=== PATIENT | female | born 1960 | race African-American/Black ===

== ENCOUNTER 2019-04-03 20:34 | Inpatient (IN) | payer OTHER ==
[~2019-04-03] VITALS: Ht 172.7 cm; Wt 68.0 kg
[2019-04-03 21:52] LABS: BASOPHILS 0.1 % (0-2); EOSINOPHILS 0 % (0-7); HEMATOCRIT 36.1 % (36.0-48.0); HEMOGLOBIN 12.3 g/dL (12-16); IMMATURE GRANULOCYTES 0.6 % (0-5); LYMPHOCYTES 4.6 % (15-50); MCH 26.9 pg (26.0-34.0); MCHC 34.1 g/dL (31.0-37.0); MCV 78.8 fL (80.0-100.0); MEAN PLATELET VOLUME 11.9 fL (7.4-10.4); MONOCYTES 6.5 % (2-11); NEUTROPHILS 88.2 % (40-80); PLATELET COUNT 163 10x3/uL (130-400); RBC 4.58 10x6/uL (4.00-5.40); RDW 13.9 % (11.5-14.5); WBC 18.5 10x3/uL (4.8-10.8)
[2019-04-03 21:56] LABS: APTT 31.7 SECONDS (22.8-39.4); INR 1.19 (0.85-1.17); PROTIME 14.6 SECONDS (11.6-15.0)
[2019-04-03 21:58] LABS: APPEARANCE HAZY (CLEAR); BACTERIA MANY /hpf (NONE SEEN); BILIRUBIN NEGATIVE (NEGATIVE); COLOR YELLOW (YELLOW); EPITHELIAL CELLS OCC /hpf (0-5); GLUCOSE NEGATIVE (NEGATIVE); KETONE MODERATE mg/dL (NEGATIVE); NITRITE POSITIVE (NEGATIVE); PROTEIN 1+ mg/dL (NEGATIVE); RED CELLS - URINE 0-5 /hpf (0-5); UROBILINOGEN NORMAL (NORMAL); WHITE CELLS - URINE 0-5 /hpf (0-5)
[2019-04-03 22:05] LABS: ALBUMIN 2.8 g/dL (3.4-5.0); ALKALINE PHOSPHATASE 196 U/L (46-116); ALT (SGPT) 198 U/L (10-68); CALC OSMOLALITY 257 mosm/kg (275-300); CALCIUM 8.8 mg/dL (8.5-10.1); CARBON DIOXIDE 26.1 mmol/L (21.0-32.0); CHLORIDE - SERUM 90 mmol/L (98-107); CREATININE - SERUM 1.3 mg/dL (0.6-1.3); GLUCOSE 96 mg/dL (74-106); POTASSIUM - SERUM 3.6 mmol/L (3.5-5.1); PROTEIN - SERUM 8.4 g/dL (6.4-8.2); SODIUM 128 mmol/L (136-145); UREA NITROGEN 14 mg/dL (7-18); eGFR NON AFRICAN AMERICAN 44 mL/min (90-120)
[2019-04-03 22:17] LABS: CKMB 11.8 U/L (0.0-3.6)
[2019-04-03 22:24] LABS: CREATINE KINASE 10130 UL (21-215)
--- NOTE | 2019-04-03 22:37 | NUR ---
PT TO RADIOLOGY.
--- NOTE | 2019-04-03 23:02 | NUR ---
PT RETURNED FROM RADIOLOGY.
--- NOTE | 2019-04-03 23:32 | NUR ---
PT AMBULATED TO RESTROOM INDEPENDENTLY.
--- NOTE | 2019-04-04 00:08 | NUR ---
PT AMBULATED TO RESTROOM INDEPENDENTLY.
--- NOTE | 2019-04-04 00:40 | NUR ---
RECEIVED PT FROM ER VIA STRETCHER. LETHARGIC. ORIENTED X4. SLOW TO ANSWER QUESTIONS. RESP IRREG, SOB NOTED. O2 @ 2L/NC. NONPROD COUGH NOTED. V/S STABLE. MEDICATED FOR ELEVATED TEMP IN ER. NS @ 100 ML/HR INFUSING IN RT FOREARM WITHOUT DIFF. DENIES PAIN. GEN WEAKNESS NOTED. APPEARS ILL. INSTRUCTED ON NPO AFTER MIDNIGHT. SHE VERBALIZED UNDERSTANDING. SHANELLE ALARM IN USE FOR PT SAFETY. SR ELEVATED X2. CL IN REACH.
[2019-04-04 01:49] VITALS: BP 102/63; BMI 22.8
--- NOTE | 2019-04-04 02:35 | NUR ---
ASSISTED UP TO BSC TO VOID. BRIEF WAS WET. VERY WEAK. ASSISTED BACK TO BED. SHANELLE ALARM ON. CL IN REACH.
[2019-04-04 05:55] VITALS: BP 119/74
--- NOTE | 2019-04-04 07:57 | NUR ---
PT SEEN AND ASSESSED. NO COMPLAINTS AT PRESENT. WANTS TO EAT BUT KNOWS SHE HAS TO WAIT ON US REPORT. LUNGS DIMINISHED BILAT BUT NO SOB NOTED. FALL PRECAUTIONS IN PLACE. CALL LIGHT IN REACH
[2019-04-04 09:41] VITALS: BP 125/78
[2019-04-04 09:53] LABS: BASOPHILS 0.1 % (0-2); EOSINOPHILS 0 % (0-7); HEMATOCRIT 34.1 % (36.0-48.0); HEMOGLOBIN 11.9 g/dL (12-16); IMMATURE GRANULOCYTES 0.9 % (0-5); LYMPHOCYTES 2.6 % (15-50); MCH 27.5 pg (26.0-34.0); MCHC 34.9 g/dL (31.0-37.0); MCV 78.8 fL (80.0-100.0); MONOCYTES 5.1 % (2-11); NEUTROPHILS 91.3 % (40-80); PLATELET COUNT 159 10x3/uL (130-400); RBC 4.33 10x6/uL (4.00-5.40); RDW 14.3 % (11.5-14.5); WBC 19.3 10x3/uL (4.8-10.8)
[2019-04-04 10:51] LABS: ALBUMIN 2.1 g/dL (3.4-5.0); ANION GAP 12.3 mmol/L (8-16); BILIRUBIN - TOTAL 1.29 mg/dL (0.2-1.3); CALCIUM 8.4 mg/dL (8.5-10.1); CARBON DIOXIDE 27.6 mmol/L (21.0-32.0); CREATININE - SERUM 1.2 mg/dL (0.6-1.3); POTASSIUM - SERUM 3.9 mmol/L (3.5-5.1); PROTEIN - SERUM 7.1 g/dL (6.4-8.2)
--- NOTE | 2019-04-04 11:43 | NUR ---
PT WANTED TO AMBULATE IN HALLWAY WITH DAUGHTER. NO OXYGEN AND SAT REMAINED 94-95 WITH HR 103-106. TOLERATED WELL. BACK IN CHAIR AT BEDSIDE WITH OXYGEN
[2019-04-04 13:30] VITALS: Ht 172.7 cm; Wt 68.0 kg
[2019-04-04 13:51] VITALS: BP 126/70
--- NOTE | 2019-04-04 15:43 | NUR ---
PT BACK TO BED. HAS BEEN UP SINCE MID MORNING. ROOM AIR SAT WHEN EYES CLOSED 89-90. PLACED ON 2LNC AND SATS 94-95%. FALL MAT REACTIVATED WHILE IN BED. SCDS ON BILAT. CALL LIGHT IN REACH
[2019-04-04 17:46] VITALS: BP 117/61
--- NOTE | 2019-04-04 19:25 | NUR ---
SITTING UP IN CHAIR EATING VEGETABLE TRAY. FAMILY AT BEDSIDE. RESP NONLABORED. O2 @ 2L/NC. NONPROD COUGH NOTED. DENIES PAIN. NS @ 100 ML/HR INFUSING IN RT FOREARM WITHOUT DIFF. GEN WEAKNESS NOTED. AMB WITH ASSIST X1. NO DISTRESS. CL IN REACH.
[2019-04-04 21:13] VITALS: BP 123/74
--- NOTE | 2019-04-04 22:30 | NUR ---
C/O PAIN AT IV SITE. IV CATH REMOVED FROM RT FOREARM. NO SWELLING NOTED. IV RESTARTED IN RT FOREARM.
[2019-04-05 00:29] VITALS: BP 134/80
--- NOTE | 2019-04-05 05:00 | NUR ---
HAS RESTED WELL TONIGHT. LYING IN BED WITH EYES CLOSED. RESP EVEN AND NONLABORED. NO DISTRESS. CL IN REACH. SHANELLE ALARM ON .
[2019-04-05 05:28] VITALS: BP 120/69
[2019-04-05 07:18] LABS: HEMATOCRIT 31.6 % (36.0-48.0); HEMOGLOBIN 10.7 g/dL (12-16); MCH 26.3 pg (26.0-34.0); MCHC 33.9 g/dL (31.0-37.0); MCV 77.6 fL (80.0-100.0); PLATELET COUNT 186 10x3/uL (130-400); RBC 4.07 10x6/uL (4.00-5.40); RDW 13.8 % (11.5-14.5); WBC 23.4 10x3/uL (4.8-10.8)
[2019-04-05 07:25] LABS: ALBUMIN 1.9 g/dL (3.4-5.0); ANION GAP 14.9 mmol/L (8-16); BILIRUBIN - TOTAL 0.6 mg/dL (0.2-1.3); CALCIUM 8.2 mg/dL (8.5-10.1); CARBON DIOXIDE 23.8 mmol/L (21.0-32.0); CREATININE - SERUM 0.9 mg/dL (0.6-1.3); POTASSIUM - SERUM 3.7 mmol/L (3.5-5.1); PROTEIN - SERUM 6.8 g/dL (6.4-8.2)
--- NOTE | 2019-04-05 08:24 | NUR ---
PT REFUSED TO TAKE LOVENOX AND SOLU-MEDROL ON THIS AM. PT WAS EDUCATED BY THIS NURSE ON THE IMPORTANTANCE OF TAKIN MEDIATION BUT STILL REFUSED.
[2019-04-05 09:27] LABS: LYMPHOCYTES 14 % (15-50); MONOCYTES 13 % (2-11); NEUTROPHILS 67 % (40-80); PLATELET ESTIMATE NORMAL
[2019-04-05 09:28] LABS: ANISOCYTOSIS OCC; ROULEAUX OCC
[2019-04-05 10:43] VITALS: BP 123/68
[2019-04-05 14:27] VITALS: BP 133/80
--- NOTE | 2019-04-05 15:28 | MORECARE ---
CASE MANAGEMENT DISCHARGE SUMMARY PATIENT: MADHAV MORENO UNIT: [id number] ADM DATE: 04/03/19 AGE: 58 : 56 SEX: F ROOM/BED: D.2202 AUTHOR: JC,DOC PHYSICIAN: REFERRING PHYSICIAN: WANDA CELESTE MD DATE OF SERVICE: 04/05/19 Discharge Plan Patient Name: MADHAV MORENO Facility: [facility]:[place] : 1960 Planned Disposition: Home or Self Care Anticipated Discharge Date: Discharge Date: Expected LOS: Initial Reviewer: [email or web address] Initial Review Date: 04/04/2019 Generated: 04/05/19 4:28 pm Comments DCP- Discharge Planning Updated by [email or web address]: Yadi Dangelo on 04/05/19 2:[address] Patient Name: MADHAV MORENO Admission Status: ER Accout number: [id number] Admission Date: 04-03-2019 : 1960 Admission Diagnosis: Attending: WANDA CELESTE Current LOS: 2 Anticipated DC Date: Planned Disposition: Home or Self Care Primary Insurance: [employer] P[employer] Discharge Planning Comments: CM met with patient to complete initial dc planning assessment. CM educated patient on the CM role and verbal consent given by patient to complete assessment. Patient lives at home where he is independent with her care. At discharge patient plans to return home and feels this is a safe discharge. 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 CM discussed availability of home health, rehab services, and medical equipment. Patient denied known discharge needs at this time. CM will continue to follow and will assist as needed with dc plans/needs. Rn Assessment: Yadi Dangelo DCPIA - Discharge Planning Initial Assessment Updated by [email or web address]: Yadi Dangelo on 04/05/19 3:21 pm * Is the patient Alert and Oriented? Yes * How many steps to enter\exit or inside your home? * PCP BOOKER * Pharmacy [facility] [address] * Preadmission Environment Home Alone * ADLs Independent * Equipment None * List name and contact numbers for known caregivers / representatives who currently or will assist patient after discharge: ABDOUL COLLINS [phone] * Verbal permission to speak to the caregivers and representatives has been obtained from the patient. N/A * Community resources currently utilized None * Additional services required to return to the preadmission environment? No * Can the patient safely return to the preadmission environment? Yes * Has this patient been hospitalized within the prior 30 days at any hospital? No Patient Name: MADHAV MORENO Page [id number] at 1528 All edits/amendments must be made on the electronic document DICTATION DATE: 04/05/191527 DIGGING MACHINE OPERATOR: TESS 04/05/191527 RPT#: [id number] DC DATE: STATUS: ADM IN [facility] [address] [place] [address] END OF REPORT
[2019-04-05 15:48] VITALS: BP 116/65
--- NOTE | 2019-04-05 16:37 | NUR ---
I have reviewed this patient and I concur with the Shift Assessment completed by the Licensed Practical Nurse today this shift.
--- NOTE | 2019-04-05 19:30 | NUR ---
LYING IN BED. ALERT AND ORIENTED X4. SLOW TO RESPOND TO QUESTIONS. GEN WEAKNESS NOTED. FAMILY AT BEDSIDE. RESP NONLABORED. O2 @ 2L/NC. SCDS IN USE. ABD DISTENDED. BS HYPERACTIVE X4 QUADS. NONPROD COUGH NOTED. NS @ 100 ML/HR INFUSING IN RT FOREARM WITHOUT DIFF. SHANELLE ALARM IN USE. NO DISTRESS. SR ELEVATED X2. CL IN REACH.
[2019-04-05 20:38] VITALS: BP 117/64
[2019-04-06] VITALS: BP 114/67
--- NOTE | 2019-04-06 03:29 | NUR ---
LYING IN BED. NO DISTRESS. RESP NONLABORED. O2 @ 2L/NC. V/S STABLE. SHANELLE ALARM IN USE. CL IN REACH.
[2019-04-06 04:00] VITALS: BP 138/77
--- NOTE | 2019-04-06 04:31 | NUR ---
ASSISTED UP TO BSC TO VOID. NO DISTRESS. SHANELLE ALARM ON. CL IN REACH.
[2019-04-06 05:42] LABS: BASOPHILS 0.1 % (0-2); EOSINOPHILS 0 % (0-7); HEMATOCRIT 32.9 % (36.0-48.0); HEMOGLOBIN 11.3 g/dL (12-16); IMMATURE GRANULOCYTES 3.8 % (0-5); LYMPHOCYTES 2.6 % (15-50); MCH 26.6 pg (26.0-34.0); MCHC 34.3 g/dL (31.0-37.0); MCV 77.4 fL (80.0-100.0); MEAN PLATELET VOLUME 12.4 fL (7.4-10.4); NEUTROPHILS 89.5 % (40-80); PLATELET COUNT 199 10x3/uL (130-400); RBC 4.25 10x6/uL (4.00-5.40); RDW 13.8 % (11.5-14.5); WBC 22.5 10x3/uL (4.8-10.8)
[2019-04-06 07:22] LABS: CALC OSMOLALITY 284 mosm/kg (275-300); CALCIUM 8.3 mg/dL (8.5-10.1); CARBON DIOXIDE 25.4 mmol/L (21.0-32.0); CHLORIDE - SERUM 108 mmol/L (98-107); CREATININE - SERUM 0.8 mg/dL (0.6-1.3); GLUCOSE 129 mg/dL (74-106); POTASSIUM - SERUM 3.9 mmol/L (3.5-5.1); SODIUM 141 mmol/L (136-145); UREA NITROGEN 18 mg/dL (7-18); eGFR NON AFRICAN AMERICAN 77 mL/min (90-120)
[2019-04-06 08:46] VITALS: BP 148/88
--- NOTE | 2019-04-06 09:42 | NUR ---
pt alert x 4. breath sounds clear bilat, shallow and short, 3l o2 per nc. iv to right wrist, patent, dressing cdi. pt reporting no pain at this time. bed low, call light in reach. no other needs at this time.
[2019-04-06 12:42] VITALS: BP 130/79
[2019-04-06 18:26] VITALS: BP 141/89
[2019-04-06 20:14] VITALS: BP 132/71
--- NOTE | 2019-04-06 20:30 | NUR ---
PT SITTING UP IN BEDSIDE CHAIR WITHOUT DISTRESS, ALERT AND ORIENTED. DENIES PAIN. O2 4L/NC. IV RIGHT WRIST INFUSING NS @ 100. SHANELLE ON. PT ASSISTED TO BEDSIDE COMMODE. ASSISTED PT WITH TAKING SHOWER. TOLERATED WELL. DENIES OTHER NEEDS. CL IN REACH, WILL CTM
[2019-04-07 02:19] VITALS: BP 134/79
[2019-04-07 06:01] VITALS: BP 130/76
[2019-04-07 06:35] LABS: ANION GAP 11.8 mmol/L (8-16); CALCIUM 8.6 mg/dL (8.5-10.1); CARBON DIOXIDE 26.3 mmol/L (21.0-32.0); CREATININE - SERUM 0.9 mg/dL (0.6-1.3)
[2019-04-07 06:37] LABS: POTASSIUM - SERUM 3.1 mmol/L (3.5-5.1)
[2019-04-07 07:14] LABS: HEMATOCRIT 31.5 % (36.0-48.0); HEMOGLOBIN 10.8 g/dL (12-16); MCH 26.6 pg (26.0-34.0); MCHC 34.3 g/dL (31.0-37.0); MCV 77.6 fL (80.0-100.0); MEAN PLATELET VOLUME 11.6 fL (7.4-10.4); PLATELET COUNT 303 10x3/uL (130-400); RBC 4.06 10x6/uL (4.00-5.40); RDW 13.9 % (11.5-14.5)
[2019-04-07 08:43] LABS: LYMPHOCYTES 4 % (15-50); MONOCYTES 3 % (2-11); NEUTROPHILS 69 % (40-80); PLATELET ESTIMATE NORMAL; PLATELET MORPHOLOGY GIANT PLTS PRESENT
[2019-04-07 08:44] LABS: HYPOCHROMASIA 1+; ROULEAUX 2+
[2019-04-07 09:50] VITALS: BP 132/70
--- NOTE | 2019-04-07 11:56 | NUR ---
PT ALERT X 4. BREATH SOUNDS DIMINISHED TO LOWER LOBES, 4L O2 PER NC. IV TO RIGHT WRIST, PATENT, DRESSING CDI. SCD'S ON. PT REPORTING NO PAIN AT THIS TIME. BED LOW CALL LIGHT IN REACH. NO OTHER NEEDS AT THIS TIME.
[2019-04-07 12:59] VITALS: BP 137/74
[2019-04-07 18:47] VITALS: BP 136/81
[2019-04-07 20:00] VITALS: BP 141/80
[2019-04-08 04:00] VITALS: BP 126/72
[2019-04-08 06:35] LABS: CREATINE KINASE 372 UL (21-215); PRO BNP 515 pg/mL (0-125)
[2019-04-08 07:08] LABS: CKMB 2.1 U/L (0.0-3.6)
[2019-04-08 08:07] VITALS: BP 140/81
--- NOTE | 2019-04-08 08:39 | NUR ---
PT ALERT X 4. BREATH SOUNDS DIMINISHED TO LOWER LOBES, 5L O2 PER NC. IV TO LEFT HAND, PATENT, DRESSING CDI. PT REPORTING NO PAIN AT THIS TIME. BED LOW, CALL LIGHT IN REACH. NO OTHER NEEDS AT THIS TIME.
--- NOTE | 2019-04-08 10:47 | NUR ---
NUTRITION F/U PT TOLERATING VEGAN DIET. ~25% INTAKE BREAKFAST TODAY. DID HAVE EXTRA JUICE. WILL CONTINUE TO PROVIDE DIET, HONOR FOOD PREFERENCES. RD FOLLOWING
[2019-04-08 11:38] LABS: BASOPHILS 0.3 % (0-2); EOSINOPHILS 1.9 % (0-7); HEMATOCRIT 29.8 % (36.0-48.0); IMMATURE GRANULOCYTES 11.6 % (0-5); MCH 26.7 pg (26.0-34.0); MCHC 33.6 g/dL (31.0-37.0); MCV 79.7 fL (80.0-100.0); MEAN PLATELET VOLUME 11.7 fL (7.4-10.4); NEUTROPHILS 71.2 % (40-80); PLATELET COUNT 323 10x3/uL (130-400); RBC 3.74 10x6/uL (4.00-5.40); RDW 14.2 % (11.5-14.5); WBC 20.8 10x3/uL (4.8-10.8)
[2019-04-08 11:42] LABS: ALBUMIN 1.8 g/dL (3.4-5.0); ALKALINE PHOSPHATASE 128 U/L (46-116); ALT (SGPT) 131 U/L (10-68); BILIRUBIN - TOTAL 0.61 mg/dL (0.2-1.3); CALC OSMOLALITY 286 mosm/kg (275-300); CALCIUM 8.2 mg/dL (8.5-10.1); CHLORIDE - SERUM 107 mmol/L (98-107); CREATININE - SERUM 0.8 mg/dL (0.6-1.3); GLUCOSE 76 mg/dL (74-106); MAGNESIUM - SERUM 1.7 mg/dL (1.8-2.4); PHOSPHOROUS 2.1 mg/dL (2.5-4.9); POTASSIUM - SERUM 3.1 mmol/L (3.5-5.1); PROTEIN - SERUM 6.1 g/dL (6.4-8.2); SODIUM 145 mmol/L (136-145); eGFR NON AFRICAN AMERICAN 77 mL/min (90-120)
[2019-04-08 11:45] LABS: UREA NITROGEN 10 mg/dL (7-18)
[2019-04-08 13:21] VITALS: BP 133/81
[2019-04-08 14:30] LABS: PATH REVIEW PERIPHERAL SMEAR REVIEWED
[2019-04-08 16:58] VITALS: BP 133/78
--- NOTE | 2019-04-08 19:40 | NUR ---
PT LYING IN BED RESTING, WITHOUT DISTRESS. O2 5L/NC. IV LEFT HAND INFUSING NS @ 100. SCDS IN PLACE. DENIES PAIN OR NEEDS. CL IN REACH, WILL CTM
[2019-04-08 20:00] VITALS: BP 123/73
[2019-04-09] VITALS: BP 130/61
[2019-04-09 04:00] VITALS: BP 140/70
[2019-04-09 08:46] VITALS: BP 148/78
--- NOTE | 2019-04-09 09:11 | NUR ---
PT ALERT X 4. BREATH SOUNDS DIMINISHED TO LOWER LOBES, 5L O2 PER NC. IV TO LEFT HAND, PATENT, DRESSING CDI. PT REPORTING NO PAIN AT THIS TIME. BED LOW. CALL LIGHT IN REACH. NO OTHER NEEDS AT THIS TIME.
[2019-04-09 09:52] LABS: HEMOGLOBIN 10.5 g/dL (12-16); MCH 27.1 pg (26.0-34.0); MCHC 33.9 g/dL (31.0-37.0); MCV 79.9 fL (80.0-100.0); MEAN PLATELET VOLUME 11.4 fL (7.4-10.4); PLATELET COUNT 386 10x3/uL (130-400); RBC 3.88 10x6/uL (4.00-5.40); RDW 14.5 % (11.5-14.5); WBC 16.5 10x3/uL (4.8-10.8)
[2019-04-09 10:36] LABS: ANION GAP 11.7 mmol/L (8-16); CALCIUM 8.4 mg/dL (8.5-10.1); CARBON DIOXIDE 30.1 mmol/L (21.0-32.0); CREATININE - SERUM 0.9 mg/dL (0.6-1.3); MAGNESIUM - SERUM 1.6 mg/dL (1.8-2.4)
[2019-04-09 10:38] LABS: PHOSPHOROUS 2.7 mg/dL (2.5-4.9)
[2019-04-09 10:39] LABS: POTASSIUM - SERUM 2.8 mmol/L (3.5-5.1)
[2019-04-09 11:20] LABS: EOSINOPHILS 3 % (0-7); LYMPHOCYTES 9 % (15-50); MONOCYTES 6 % (2-11); NEUTROPHILS 69 % (40-80)
[2019-04-09 11:21] LABS: PLATELET ESTIMATE NORMAL
[2019-04-09 13:23] VITALS: BP 148/85
[2019-04-09 16:55] VITALS: BP 150/81
[2019-04-09 20:00] VITALS: BP 132/76
--- NOTE | 2019-04-09 20:11 | NUR ---
REC'D IN ROOM STANDING AT SINK BRUSHING TEETH.DENIES ANY COMPLAINTS AT PRESENT TIME.WILL CONTINUE TO MONITOR FOR ANY CHGES. AND FOLLOW CURRENT PLAN OF CARE.REQUESTING SHOWER EXPLAINED WILL LET PUBLIC HEALTH PHYSICIAN KNOW BUT WILL BE AFTER VS. VOICES UNDERSTANDING
--- NOTE | 2019-04-10 03:29 | NUR ---
I have reviewed this patient and I concur with the Shift Assessment completed by the Licensed Practical Nurse today this shift.
[2019-04-10 04:00] VITALS: BP 132/65
[2019-04-10 08:43] VITALS: BP 141/78
[2019-04-10 08:55] LABS: BASOPHILS 0.3 % (0-2); EOSINOPHILS 2.2 % (0-7); HEMATOCRIT 29.7 % (36.0-48.0); HEMOGLOBIN 9.9 g/dL (12-16); IMMATURE GRANULOCYTES 10.9 % (0-5); LYMPHOCYTES 11.3 % (15-50); MCH 26.4 pg (26.0-34.0); MCHC 33.3 g/dL (31.0-37.0); MCV 79.2 fL (80.0-100.0); MONOCYTES 9.4 % (2-11); NEUTROPHILS 65.9 % (40-80); PLATELET COUNT 413 10x3/uL (130-400); RBC 3.75 10x6/uL (4.00-5.40); RDW 14.5 % (11.5-14.5)
[2019-04-10 09:04] LABS: WBC 10.8 10x3/uL (4.8-10.8)
[2019-04-10 09:06] LABS: ALKALINE PHOSPHATASE 110 U/L (46-116); ALT (SGPT) 108 U/L (10-68); BILIRUBIN - TOTAL 0.51 mg/dL (0.2-1.3); CALCIUM 8.1 mg/dL (8.5-10.1); CARBON DIOXIDE 33.3 mmol/L (21.0-32.0); CHLORIDE - SERUM 107 mmol/L (98-107); CREATININE - SERUM 0.7 mg/dL (0.6-1.3); MAGNESIUM - SERUM 1.6 mg/dL (1.8-2.4); PHOSPHOROUS 3.1 mg/dL (2.5-4.9); PROTEIN - SERUM 6.3 g/dL (6.4-8.2); SODIUM 144 mmol/L (136-145); UREA NITROGEN 8 mg/dL (7-18); eGFR NON AFRICAN AMERICAN 90 mL/min (90-120)
[2019-04-10 09:07] LABS: CALC OSMOLALITY 283 mosm/kg (275-300); GLUCOSE 89 mg/dL (74-106); POTASSIUM - SERUM 3.2 mmol/L (3.5-5.1)
[2019-04-10 12:43] VITALS: BP 146/77
[2019-04-10 14:46] VITALS: BP 135/75
[2019-04-10 20:00] VITALS: BP 135/68
--- NOTE | 2019-04-11 00:23 | NUR ---
REC'S. AT CHGE OF SHIFT WALKING IN HALLWAY WITH FAMILY.KIKE WELL SOME SOB ON MINIMAL ACTIVITY 02 SATS 96%. NO FURTHER RESP. DIFFICULTY OBSERVED WILL CONTINUE TO MONITOR FOR ANY CHGES.IN RESP. STATUS AND FOLLOW CURRENT PLAN OF CARE
[2019-04-11 05:16] LABS: BASOPHILS 0.2 % (0-2); EOSINOPHILS 2.3 % (0-7); HEMATOCRIT 29.2 % (36.0-48.0); HEMOGLOBIN 9.7 g/dL (12-16); IMMATURE GRANULOCYTES 8.5 % (0-5); LYMPHOCYTES 16.7 % (15-50); MCH 26.6 pg (26.0-34.0); MCHC 33.2 g/dL (31.0-37.0); MCV 80.2 fL (80.0-100.0); MEAN PLATELET VOLUME 10.6 fL (7.4-10.4); MONOCYTES 10.4 % (2-11); NEUTROPHILS 61.9 % (40-80); PLATELET COUNT 414 10x3/uL (130-400); RBC 3.64 10x6/uL (4.00-5.40); RDW 14.5 % (11.5-14.5); WBC 9.6 10x3/uL (4.8-10.8)
[2019-04-11 05:23] LABS: CALCIUM 8.8 mg/dL (8.5-10.1); CARBON DIOXIDE 34.1 mmol/L (21.0-32.0); CHLORIDE - SERUM 106 mmol/L (98-107); CREATININE - SERUM 0.7 mg/dL (0.6-1.3); GLUCOSE 92 mg/dL (74-106); MAGNESIUM - SERUM 1.9 mg/dL (1.8-2.4); SODIUM 143 mmol/L (136-145); eGFR NON AFRICAN AMERICAN 90 mL/min (90-120)
[2019-04-11 05:32] LABS: CALC OSMOLALITY 285 mosm/kg (275-300); POTASSIUM - SERUM 3.8 mmol/L (3.5-5.1); UREA NITROGEN 14 mg/dL (7-18)
--- NOTE | 2019-04-11 06:26 | NUR ---
I have reviewed this patient and I concur with the Shift Assessment completed by the Licensed Practical Nurse today this shift.
[2019-04-11] MEDS ORDERED: LEVAQUIN750 MG PO (08:23)
[2019-04-11] MEDS ORDERED: FLORANEX / LACT1 TAB PO (08:23)
--- NOTE | 2019-04-11 09:46 | MORECARE ---
CASE MANAGEMENT DISCHARGE SUMMARY PATIENT: MADHAV MORENO UNIT: [id number] ADM DATE: 04/03/19 AGE: 58 : 56 SEX: F ROOM/BED: D.2202 AUTHOR: JC,DOC PHYSICIAN: REFERRING PHYSICIAN: WANDA CELESTE MD DATE OF SERVICE: 04/11/19 Discharge Plan Patient Name: MADHAV MORENO Facility: [facility]:[place] : 1960 Planned Disposition: Home or Self Care Anticipated Discharge Date: Discharge Date: Expected LOS: Initial Reviewer: [email or web address] Initial Review Date: 04/04/2019 Generated: 04/11/19 10:45 am Comments DCP- Discharge Planning Updated by [email or web address]: Yadi Dangelo on 04/11/19 8:[address] Patient Name: MADHAV MORENO Encounter No: [id number] : 1960 Primary Insurance: [employer] [facility] PP Anticipated DC Date: Planned Disposition: Home or Self Care External Planned Provider: : DCP follow-up note: Patient and family in agreement with discharge plan. No changes to plan. Case management will follow and assist as needed. Yadi Dangelo DCP- Discharge Planning Updated by [email or web address]: Yadi Dangelo on 04/05/19 2:[address] Patient Name: MADHAV MORENO Admission Status: ER Accout number: [id number] Admission Date: 04-03-2019 : 1960 Admission Diagnosis: Attending: WANDA CELESTE Current LOS: 2 Anticipated DC Date: Planned Disposition: Home or Self Care Primary Insurance: [employer] [facility] PPO Discharge Planning Comments: CM met with patient to complete initial dc planning assessment. CM educated patient on the CM role and verbal consent given by patient to complete assessment. Patient lives at home where he is independent with her care. At discharge patient plans to return home and feels this is a safe discharge. Her daughter will be her compressed air pile driver operator home. CM discussed availability of home health, rehab services, and medical equipment. Patient denied known discharge needs at this time. CM will continue to follow and will assist as needed with dc plans/needs. Clammer: Yadi Dangelo DCPIA - Discharge Planning Initial Assessment Updated by [email or web address]: Yadi Dangelo on 04/05/19 3:21 pm * Is the patient Alert and Oriented? Yes * How many steps to enter\exit or inside your home? * PCP BOOKER * Pharmacy [facility] [address] * Preadmission Environment Home Alone * ADLs Independent * Equipment None * List name and contact numbers for known caregivers / representatives who currently or will assist patient after discharge: ABDOUL KARINA [phone] * Verbal permission to speak to the caregivers and representatives has been obtained from the patient. N/A * Community resources currently utilized None * Additional services required to return to the preadmission environment? No * Can the patient safely return to the preadmission environment? Yes * Has this patient been hospitalized within the prior 30 days at any hospital? No Last DP export: 04/05/19 2:28 p Patient Name: MADHAV MORENO Page [id number] at 0946 All edits/amendments must be made on the electronic document DICTATION DATE: 04/11/19944 RES COUNSELOR: TESS 04/11/19944 RPT#: [id number] DC DATE: STATUS: ADM IN [facility] [address] [place] [address] END OF REPORT
[2019-04-11 10:02] VITALS: BP 142/79
--- NOTE | 2019-04-11 10:52 | NUR ---
IV THERAPY DC'ED FROM LEFT HAND. TIP INTACT. OXYGEN TAKEN OFF. O2 STABLE AT 92 WITH ME IN ROOM GOING OVER DISCHARGE PAPERS. VERBALIZED UNDERSTANDING. WILL NOTIFY ME WHEN READY TO GO.
--- NOTE | 2019-04-11 13:27 | MORECARE ---
CASE MANAGEMENT DISCHARGE SUMMARY PATIENT: MADHAV MORENO UNIT: [id number] ADM DATE: 04/03/19 AGE: 58 : 56 SEX: F ROOM/BED: D.2202 AUTHOR: JCDOC PHYSICIAN: REFERRING PHYSICIAN: WANDA CELESTE MD DATE OF SERVICE: 04/11/19 Discharge Plan Patient Name: MADHAV MORENO Facility: [facility]:[place] : 1960 Planned Disposition: Home or Self Care Anticipated Discharge Date: Discharge Date: 04/11/2019 Expected LOS: 0 Initial Reviewer: [email or web address] Initial Review Date: 04/04/2019 Generated: 04/11/19 2:26 pm Comments DCP- Discharge Planning Updated by [email or web address]: Yadi Dangelo on 04/11/19 8:[address] Patient Name: MADHAV MORENO Encounter No: [id number] : 1960 Primary Insurance: [employer] PPO Anticipated DC Date: Planned Disposition: Home or Self Care External Planned Provider: : DCP follow-up note: Patient and family in agreement with discharge plan. No changes to plan. Case management will follow and assist as needed. Yadi Dangelo DCP- Discharge Planning Updated by [email or web address]: Yadi Dangelo on 04/05/19 2:[address] Patient Name: MADHAV MORENO Admission Status: ER Accout number: [id number] Admission Date: 04-03-2019 : 1960 Admission Diagnosis: Attending: WANDA CELESTE Current LOS: 2 Anticipated DC Date: Planned Disposition: Home or Self Care Primary Insurance: [employer] [facility] PPO Discharge Planning Comments: CM met with patient to complete initial dc planning assessment. CM educated patient on the CM role and verbal consent given by patient to complete assessment. Patient lives at home where he is independent with her care. At discharge patient plans to return home and feels this is a safe discharge. Her daughter will be her pile driver operator home. CM discussed availability of home health, rehab services, and medical equipment. Patient denied known discharge needs at this time. CM will continue to follow and will assist as needed with dc plans/needs. Coal Trimmer: Yadi Dangelo DCPIA - Discharge Planning Initial Assessment Updated by [email or web address]: Yadi Dangelo on 04/05/19 3:21 pm * Is the patient Alert and Oriented? Yes * How many steps to enter\exit or inside your home? * PCP BOOKER * Pharmacy [facility] [address] * Preadmission Environment Home Alone * ADLs Independent * Equipment None * List name and contact numbers for known caregivers / representatives who currently or will assist patient after discharge: ABDOUL COLLINS [phone] * Verbal permission to speak to the caregivers and representatives has been obtained from the patient. N/A * Community resources currently utilized None * Additional services required to return to the preadmission environment? No * Can the patient safely return to the preadmission environment? Yes * Has this patient been hospitalized within the prior 30 days at any hospital? No Last DP export: 04/11/19 8:46 a Patient Name: MADHAV MORENO Page [phone] at 1327 All edits/amendments must be made on the electronic document DICTATION DATE: 04/11/196 E MAIL SYSTEM ADMINISTRATOR: TESS 04/11/19 1326 RPT#: [id number] DC DATE:04/11/19 STATUS: DIS IN [facility] [address] [place] [address] END OF REPORT
== END 2019-04-11 12:27 | disposition home or self-care (01) | DRG 871 ==
LOC: D.ER 20:34 → D.MS 22:45 → D.SDCHOLD 04-04 10:28 → D.MS 04-04 10:30
PROVIDERS: Emergency Medicine; Internal Medicine Pulmonary Disease; ADMIT Family Medicine; ATTEND Family Medicine
DX: A41.9 Sepsis, unspecified organism (principal); J18.9 Pneumonia, unspecified organism; N39.0 Urinary tract infection, site not specified; E87.1 Hypo-osmolality and hyponatremia; E87.6 Hypokalemia